=== PATIENT | male | born 1985 | race Caucasian/White ===

== ENCOUNTER → 2019-06-15 09:34 | Outpatient (CLI) | payer OTHER, SELFPAY ==
--- NOTE | 2019-06-15 | DI.MRI.S_ITS ---
PROCEDURE: MR BRAIN (IAC) WWO CON INDICATIONS: Tinnitus, unspecified ear TECHNIQUE: Noncontrast sagittal T1 spin echo, axial FLAIR, axial gradient echo, axial diffusion and ADC through the brain. Axial thin-slice 3D CISS, coronal TruFISP, axial T1 spin echo with fat saturation through the internal auditory canals. After the administration of contrast, thin slice axial and coronal T1 spin echo with fat saturation through the internal auditory canals, and axial T1 spin echo with fat saturation through the brain. COMPARISON: None. FINDINGS: Image quality: Excellent. Cranial nerves: No cerebellopontine angle masses. Visualized cranial nerves demonstrate no areas of abnormal signal, mass lesion or enhancement. CSF spaces: Ventricles are normal in size and shape. No extra-axial fluid collections. Basal cisterns are patent. Brain: No intracranial bleeds or mass effects. Brown-white matter interface is intact. No abnormal intracranial enhancement. Diffusion weighted images demonstrate no acute ischemic insults. Brainstem appears normal. Normal intravascular flow voids are present. Skull and face: Calvarial marrow signal is normal. Orbits appear normal. Sinuses: Sinuses demonstrate near-complete opacification of the right maxillary sinus as well as ethmoid air cells. Mild scattered mucosal thickening is present within the remaining sinuses. IMPRESSION: 1. No visualized cause of tinnitus. 2. Prominent sinus disease most notable the right maxillary and ethmoid sinuses. Dictated by: Izzy Santos M.D. on 06/15/2019 at 11:20 Approved by: Izzy Santos M.D. on 06/15/2019 at 11:29
== END ==
DX: H93.19 Tinnitus, unspecified ear (principal); H90.5 Unspecified sensorineural hearing loss; J32.4 Chronic pansinusitis
CPT/HCPCS: 70553

== ENCOUNTER 2019-09-27 17:42 | Emergency (ER) | payer OTHER, SELFPAY ==
[2019-09-27 18:06] VITALS: BP 140/88; PULSE 85; RESP 16; TEMP 37.1; O2SAT 97; BMI 29.5
--- NOTE | 2019-09-27 18:33 | DI.RAD.S_ITS ---
PROCEDURE: XR THORACIC SPINE 3V INDICATIONS: Leaned back on table, felt a pop with pain, spinal tenderness TECHNIQUE: 2 views of the thoracic spine were acquired. COMPARISON: None. FINDINGS: Bones: No fractures or dislocations. No suspicious bony lesions. 12 pairs of ribs are noted, and appear intact where visualized. Degenerative changes within the visualized cervical spine are noted. Soft tissues: No paravertebral stripe thickening. IMPRESSION: No visualized acute fracture or dislocation. However, if clinical concern and/or pain persist, short interval imaging followup in 7-10 days is recommended, as occult injury cannot be definitively excluded. Dictated by: Izzy Santos M.D. on 09/27/2019 at 18:55 Approved by: Izzy Santos M.D. on 09/27/2019 at 18:56
[2019-09-27] MEDS: KETOROLAC 60 MG/2 ML VIAL 30 MG IM (18:41)
--- NOTE | 2019-09-27 19:18 | ED.BACK ---
HPI - Back Pain/Injury <ROSALIND Landin - Last Filed: 09/27/19 21:28> General Chief Complaint: Back Pain/Injury Stated Complaint: Middle Back Pain Time Seen by Provider: 09/27/19 18:09 History of Present Illness HPI Narrative: 33yo male presents emergency department complaining of mid back pain for the past 3-4 days. Denies excessive new activity. He states he woke up feeling some tightness in his back, he leaned over the back of a picnic table to try and ?pop and stretch his back. Patient states later the next day he noticed increasing pain, muscle spasms, and a tightness when changing positions. He denies taking anything for pain such as ibuprofen or naproxen. Patient denies any other symptoms such as fever, chills, neck pain, headache, vision changes, nausea, vomiting, diarrhea, or any other concerns. Patient denies history of chronic back pain. Related Data Previous Rx's Medication Instructions Recorded cyclobenzaprine 10 mg PO BEDTIME PRN #20 tab 09/27/19 Allergies Allergy/AdvReac Type Severity Reaction Status Date / Time No Known Drug Allergies Allergy Verified 09/27/19 18:43 Review of Systems <ROSALIND Landin - Last Filed: 09/27/19 21:28> Review of Systems Narrative: REVIEW OF SYSTEMS: GENERAL: Denies fever or chills. HENT: No head trauma. CARDIOVASCULAR: No chest pain. RESPIRATORY: No shortness of breath or cough. GASTROINTESTINAL: No nausea, vomiting, diarrhea, or constipation. GENITOURINARY: No flank pain or dysuria. Denies loss of bowel or bladder control. MUSCULOSKELETAL: Complains of thoracic back pain, see HPI. INTEGUMENTARY: No rash, lesions, or pruritus. NEURO: No numbness, tingling. Patient History <ROSALIND Landin - Last Filed: 09/27/19 21:28> Medical History No significant medical problems (Acute) tobacco type: vaping Substance Use Type: does not use Exam <ROSALIND Landni - Last Filed: 09/27/19 21:28> Initial Vital Signs Initial Vital Signs: Vital Signs Temperature 98.7 F 09/27/19 18:06 Pulse Rate 85 09/27/19 18:06 Respiratory Rate 16 09/27/19 18:06 Blood Pressure 140/88 09/27/19 18:06 Pulse Oximetry 97 09/27/19 18:06 PHYSICAL EXAMINATION: GENERAL: Well groomed, alert, and cooperative. Answers questions promptly and appropriately. Vital signs noted. HENT: Normocephalic, atraumatic. EYES: Symmetrical, sclera white, no periorbital swelling. CARDIOVASCULAR: Regular rate. RESPIRATORY: Normal respiratory rate, trachea midline, airway patent. No stridor, nasal flaring or accessory muscle use. MUSCULOSKELETAL: Tenderness to paraspinal vertebral muscles around Equal cutter apprentice hand, forearm, deltoid strength bilaterally. Normal gait and coordination. Equal tone and mass bilaterally. No spinal tenderness or deformities. EXTREMITIES: CMS intact. SKIN: Warm, dry, soft, appropriate color for ethnicity. No lesions, rashes, or wounds. NEURO: Alert and Oriented X 3. No sensory deficits. PSYCH: Appropriate affect and mood. <DO Delores Sagastume Last Filed: 09/27/19 23:19> Initial Vital Signs Initial Vital Signs: Vital Signs Temperature 98.7 F 09/27/19 18:06 Pulse Rate 85 09/27/19 18:06 Respiratory Rate 16 09/27/19 18:06 Blood Pressure 140/88 09/27/19 18:06 Pulse Oximetry 97 09/27/19 18:06 Course <ROSALIND Landin - Last Filed: 09/27/19 21:28> Course Course Narrative: Patient reported improved pain after administration of Toradol. Orders Ordered: ED Orders 09/27/19 18:33 XR thoracic spine 3V Stat Discontinued Medications Ketorolac Tromethamine (Toradol) 30 mg IM NOW ONE Stop: 09/27/19 18:34 Last Admin: 09/27/19 18:41 Dose: 30 mg Documented by: SCANAPO Vital Signs Vital signs: Vital Signs - 8 hr 09/27/19 18:06 09/27/19 19:20 Temperature 98.7 F Pulse Rate 85 71 Respiratory Rate 16 14 Blood Pressure 140/88 Blood Pressure [Left Arm] 130/78 Pulse Oximetry 97 99 <Yuniel Hutson DO - Last Filed: 09/27/19 23:19> Orders Ordered: ED Orders 09/27/19 18:33 XR thoracic spine 3V Stat Discontinued Medications Ketorolac Tromethamine (Toradol) 30 mg IM NOW ONE Stop: 09/27/19 18:34 Last Admin: 09/27/19 18:41 Dose: 30 mg Documented by: SCANAPO Vital Signs Vital signs: Vital Signs - 8 hr 09/27/19 18:06 09/27/19 19:20 Temperature 98.7 F Pulse Rate 85 71 Respiratory Rate 16 14 Blood Pressure 140/88 Blood Pressure [Left Arm] 130/78 Pulse Oximetry 97 99 [facility] - Back Pain/Injury <ROSALIND Landin - Last Filed: 09/27/19 21:28> Medical Records Attestation: I reviewed the patient's medical records. Lab Data Attestation: I reviewed the patient's lab results. Imaging Data Thoracic spine: Radiologist's Impression: [address] [address] XRay Report Signed Patient: Len Yost BMR#: [id number] : 1985Acct:[id number] Age/Sex: 33 / MDate of Service: 09/27/19 Loc: ED Accession Number: [id number] Procedure: XR thoracic spine 3V Ordering Provider: Kylah Oropeza PROCEDURE: XR THORACIC SPINE 3V INDICATIONS: Leaned back on table, felt a pop with pain, spinal tenderness TECHNIQUE: 2 views of the thoracic spine were acquired. COMPARISON: None. FINDINGS: Bones: No fractures or dislocations. No suspicious bony lesions. 12 pairs of ribs are noted, and appear intact where visualized. Degenerative changes within the visualized cervical spine are noted. Soft tissues: No paravertebral stripe thickening. IMPRESSION: No visualized acute fracture or dislocation. However, if clinical concern and/or pain persist, short interval imaging followup in 7-10 days is recommended, as occult injury cannot be definitively excluded. Dictated by: Izzy Santos M.D. on 09/27/2019 at 18:55 Approved by: Izzy Santos M.D. on 09/27/2019 at 18:56 [facility] Narrative Medical decision making narrative: 33-year-old male presents to the emergency department for nontraumatic pain. Patient states he tried to pop and stretch his back, he reported improved pain but the following day reported worsening pain and stiffness. Differential includes most likely muscle strain due to significant paraspinal vertebral tenderness, isolated back pain without traumatic injury, lack of severe mechanism of injury, and pain worse with movement. Less likely fracture due to lack of direct trauma and tenderness to paraspinal vertebral muscles. Differential also includes degenerative disc disease or herniated disc, less likely due to lack of other symptoms such as limb weakness, no numbness or tingling in the limbs, a history of spinal issues. No dislocation or obvious fracture seen on x-ray. Patient was given a muscle relaxer and encouraged to use NSAIDs. He was encouraged that most musculoskeletal back pain resolves in a few weeks. Follow-up and return precautions given. Discharge Plan Departure Patient Disposition: Home Clinical Impression: Back strain Qualifiers: Encounter type: initial encounter Qualified Code(s): S39.012A - Strain of muscle, fascia and tendon of lower back, initial encounter Discharge Date/Time: 09/27/19 19:47 Instructions: DI for Back Spasm, DI for Back Strain or Sprain Activity Restrictions/Additional Instructions: Thank you for entrusting me with your care today. As discussed, your x-rays negative for any fractures. I suspect your pain is most likely caused by a muscle strain and/or spasm. I prescribed you a muscle relaxer. This medication can make you drowsy, do not drive with this medication. I suggest taking naproxen 500mg every 12 hours starting tomorrow morning for pain. This can be purchased [id number]. Please follow-up with your primary care provider in 1-2 weeks for further evaluation if you continue to have symptoms. Return emergency department for any new or worsening symptoms such as severe pain, high fevers, uncontrollable vomiting, chest pain, or any other concerns. Prescriptions: New cyclobenzaprine 10 mg tablet 10 mg PO BEDTIME PRN (Reason: muscle spasm) Qty: 20 RF: 0 <Yuniel Hutson, DO - Last Filed: 09/27/19 23:19> Cosign ED Attending Cosignature Attestation: Dr Hutson Co-Sign Statement: I was available for consultation during this patient's emergency department visit. This chart is signed by myself for administrative purposes only. I did not have direct contact with this patient during this visit. They were seen independently by the APC.
[2019-09-27 19:20] VITALS: BP 130/78; PULSE 71; RESP 14; O2SAT 99
== END 2019-09-27 19:47 | disposition home or self-care (01) ==
PROVIDERS: Emergency Provider Nurse Practitioner
DX: S39.012A Strain of muscle, fascia and tendon of lower back, initial encounter (principal)
CPT/HCPCS: 72072; 96372; 99283; J1885